=== PATIENT | male | born 1975 | race Caucasian/White ===

== ENCOUNTER → 2019-06-15 14:49 | Outpatient (CLI) | payer OTHER, SELFPAY ==
--- NOTE | 2019-06-15 14:53 | XR_ITS ---
PROCEDURE: XR DEXA AXIAL SKELETON CLINICAL HISTORY: HIGH RISK MEDICATION USE COMPARISON: No exams were available for comparison FINDINGS: L1-L4 density is 1.208 grams/centimeters sq with a T-score of -0.1. Left hip density is 0.944 grams/centimeters sq with T-score of -1.0. the Z-score of the L-spine is -0.7 and of the left femoral neck is -1.0 IMPRESSION: Moderately low bone density for age match controls with moderate fracture risk. Treatment advised. Suggest follow-up exam May 2021 Dictated by: Stevan Davalos MD 06/15/2019 15:22 Electronically signed by Stevan Davalos MD in [place] 06/15/2019 15:22
== END ==
PROVIDERS: PCP Family Medicine; Visit Provider Nurse Practitioner Family
DX: Z79.899 Other long term (current) drug therapy (principal); E70.0 Classical phenylketonuria
CPT/HCPCS: 77080

== ENCOUNTER → 2020-01-13 07:55 | Outpatient (CLI) | payer OTHER, SELFPAY ==
[2020-01-13 08:51] LABS: Basophils # 0.1 K/mm3 (0-0.2); Basophils % 1.3 % (0.1-2.0); Eosinophils # 0.5 K/mm3 (0.0-0.4); Eosinophils % 8.6 % (0.1-12.0); Hematocrit 44.9 % (42.0-52.0); Hemoglobin 15.8 g/dL (14.1-18.0); Lymphocytes # 1.5 K/mm3 (0.7-4.5); Mean Corpuscular HGB Conc 35.1 g/dL (31.8-35.4); Mean Corpuscular Hemoglobin 32.1 pg (27.0-31.2); Mean Corpuscular Volume 91.4 fl (80-94); Mean Platelet Volume 7.2 fl (7.4-10.4); Monocytes # 0.4 K/mm3 (0.1-1.0); Monocytes % 6.5 % (1.7-9.3); Neutrophils # 3.5 K/mm3 (1.8-7.8); Neutrophils % 58.7 % (37.0-80.0); Platelet Count 254 K/mm3 (142-424); Red Blood Count 4.91 M/mm3 (4.60-6.20); Red Cell Distribution Width 13.2 % (11.5-17.5)
[2020-01-13 11:20] LABS: Alanine Aminotransferase 36 U/L (12-78); Albumin Level 4.5 g/dl (3.5-5.0); Albumin/Globulin Ratio 1.7 (1.1-1.8); Alkaline Phosphatase 61 U/L (38-126); Anion Gap 9.3 mEq/L (5-15); Aspartate Amino Transferase 30 U/L (17-59); Bilirubin,Total 0.6 mg/dl (0.2-1.3); Blood Urea Nitrogen 11 mg/dl (9-20); Carbon Dioxide 29 mmol/L (22.0-30.0); Chloride 104 mmol/L (98-107); Chol/HDL Ratio 7.1 (1-3.5); Cholesterol 192 mg/dl (140-200); Estimated Glomerular Filt Rate 72 ml/min (>60); GFR (African American) 87 ML/MIN (>60); Globulin 2.6 g/dL (1.3-3.2); Glucose 96 mg/dl (74-100); HDL Cholesterol 27 mg/dl (40-60); Potassium 4.3 mmoL/L (3.5-5.1); Sodium 138 mmol/L (136-145); Total Protein,Serum 7.1 g/dl (6.3-8.2); Triglycerides 210 mg/dl (30-150); VLDL Cholesterol 42 mg/dL (0-40)
[2020-01-13 11:31] LABS: Direct LDL Cholesterol 150.38 mg/dL (100-129)
[2020-01-14 09:01] LABS: Folate 19.5 ng/mL (>3.0); Testosterone,Total 346 ng/dL (264-916); Vitamin B12 940 pg/mL (232-1245)
[2020-01-15 11:12] LABS: Vitamin D 25 Hydroxy 31.3 ng/mL (30.0-100.0)
== END ==
PROVIDERS: Visit Provider Family Medicine
DX: R53.83 Other fatigue (principal); R68.82 Decreased libido; E78.5 Hyperlipidemia, unspecified; I10 Essential (primary) hypertension
CPT/HCPCS: 36415; 80053; 80061; 82607; 82652; 82746; 84403; 85025

== ENCOUNTER → 2020-08-02 08:36 | Outpatient (CLI) | payer BC, SELFPAY ==
--- NOTE | 2020-08-02 08:40 | XR_ITS ---
PROCEDURE: XR DEXA AXIAL SKELETON CLINICAL HISTORY: local [employer] med use COMPARISON: No exams were available for comparison FINDINGS: The right hip BMD is 0.877 with a T-score of -0.4. The left hip BMD is 0.745 with a T-score of -1.4. The lumbar spine BMD is 1.042 with a T-score of -0.4. IMPRESSION: This patient is considered osteopenic according to the World Health Organization criteria. Bone density is between 10 and 25 percent below young normal. Fracture risk is moderate. Treatment is advised. Based on these results a follow-up exam is recommended in 2 year. Dictated by: Stevan Davalos MD 08/02/2020 10:42 Stevan Davalos MD in [place] 08/02/2020 10:42
== END ==
PROVIDERS: PCP Family Medicine; Visit Provider Nurse Practitioner Family
DX: Z79.899 Other long term (current) drug therapy (principal); M85.89 Other specified disorders of bone density and structure, multiple sites
CPT/HCPCS: 77080

== ENCOUNTER 2021-05-03 09:00 | Emergency (ER) | payer BC, SELFPAY ==
[2021-05-03 09:07] VITALS: BP 157/94; PULSE 74; RESP 14; TEMP 36.6; O2SAT 99; BMI 36.2
--- NOTE | 2021-05-03 09:47 | HMH.EDUTC ---
[facility] [place] Clinical Impression: Abscess of upper extremity Cellulitis Qualifiers: Site of cellulitis: extremity Site of cellulitis of extremity: upper extremity Laterality: right Qualified Code(s): L03.113 - Cellulitis of right upper limb Disposition: Home, Self-Care Condition on Discharge: Good Instructions: Cellulitis Additional Instructions: Keep the affected area clean and dry. Follow up with your regular doctor. Take the antibiotics as directed and apply the topical antibiotics as directed. Apply warm wet compresses to the affected area three or four times per day. GO TO THE ER FOR ANY WORSENING SYMPTOMS Watch yourself for worsening symptoms, such as fever, chills, area of redness getting larger, etc. Follow up [place] for any issues. Prescriptions: Sulfamethoxazole/Trimethoprim [Bactrim DS tablet] 1 each PO BID 10 Days #20 tab Transmission Status: Received by [facility] Mupirocin [Bactroban 2% Ointment 22gm tube] 1 applicatio TP TID 7 Days #1 gm Transmission Status: Received by [facility] cephALEXin [cephALEXin 500mg capsule] 500 mg PO Q6H 10 Days #40 cap Transmission Status: Received by [facility] Referrals: Lucas Rogers MD [Primary Care Provider] - Time of Disposition: 10:10 Medical Decision Making - Medical Records Medical records reviewed: No: I reviewed the patient's medical records. - Niko Inquiry Pt receiving controlled substance: No Vital Signs: 05/03/21 09:07 05/03/21 10:27 Temperature 98 F 98 F Temperature Source Oral Pulse Rate 74 Pulse Rate [Left] 74 Respiratory Rate 14 18 Blood Pressure 157/94 H Blood Pressure [Right Arm] 157/94 H Blood Pressure Mean [Right Arm] 115 02 Sat by Pulse Oximetry 99 Orders (Tests/Meds): ED MEDICATIONS Discontinued Medications Generic Name Dose Route Start Last Admin Trade Name Freq PRN Reason Stop Dose Admin Ceftriaxone Sodium 1 gm 05/03/21 09:48 05/03/21 09:58 Ceftriaxone 1gm Vial IM 05/03/21 09:49 1 gm ONCE ONE Administration Lidocaine HCl 0 ml 05/03/21 09:48 05/03/21 09:58 Lidocaine 1% 5ml Pf Vial IM 05/03/21 09:49 2.5 ml ONCE ONE Administration ORDERS Category Date Time Status Wound Culture and Gram Stain Stat Micro 05/03/21 09:50 Results [facility] [place] - General Stated complaint: infected spot on rt shoulder Time Seen by Provider: 05/03/21 09:15 Mode of Arrival: Ambulatory Source of Information: Patient Limitations: No Limitations Description of Symptoms (Recalled from Triage Doc. by RN): pt has a possible bug bite on his R shoulder. the area has developed a red softball size [place] around it that then radiates down to his axilla. the area is red, warm and slightly swollen. HEENT Symptoms (Recalled from RN notes): No Resp Symptoms (Recalled from RN notes): No Skin Symptoms (Recalled from RN notes): Yes (red rash on R shoulder) MS Symptoms (Recalled from RN notes): No Functional Status (Recalled from RN notes): na - History of Present Illness Provider Complaint: HE states that for the past 3 days he has had a worsening red area on his right shoulder. He thinks the he was bitten by a bug, then it has got infected. He denies any fever or chills. - Related Data Home Medications Medication Instructions Recorded Confirmed losartan 100 mg tablet 100 mg PO #30 tab 12/09/18 Previous Rx's Medication Instructions Recorded Mupirocin [Bactroban 2% Ointment 1 applicatio TP TID 7 Days #1 gm 05/03/21 22gm tube] Sulfamethoxazole/Trimethoprim 1 each PO BID 10 Days #20 tab 05/03/21 [Bactrim DS tablet] cephALEXin [cephALEXin 500mg 500 mg PO Q6H 10 Days #40 cap 05/03/21 capsule] Allergies Allergy/AdvReac Type Severity Reaction Status Date / Time No Known Drug Allergies Allergy Unknown Verified 12/09/18 16:33 [NO KNOWN DRUG ALLERGIES] - Worker's Comp Is this a Worker's Comp case?: No [facility] History - Hepa
[2021-05-03 10:27] VITALS: BP 157/94; PULSE 74; RESP 18; TEMP 36.6
== END 2021-05-03 10:28 | disposition home or self-care (01) ==
PROVIDERS: Emergency Provider Nurse Practitioner Family; PCP Family Medicine
DX: L03.113 Cellulitis of right upper limb (principal); I10 Essential (primary) hypertension; Z79.899 Other long term (current) drug therapy
CPT/HCPCS: 87070; 87186; 87205; 96372; 99202; G0463

== ENCOUNTER → 2021-08-18 09:33 | Outpatient (CLI) | payer BC, SELFPAY ==
[2021-08-18 10:16] LABS: Basophils # 0.1 K/mm3 (0-0.2); Basophils % 1.9 % (0.1-2.0); Eosinophils # 0.3 K/mm3 (0.0-0.4); Eosinophils % 5.1 % (0.1-12.0); Hematocrit 47.9 % (42.0-52.0); Hemoglobin 16.3 g/dL (14.1-18.0); Lymphocytes # 1.3 K/mm3 (0.7-4.5); Lymphocytes % 21.5 % (10-50); Mean Corpuscular Hemoglobin 31.3 pg (27.0-31.2); Mean Corpuscular Volume 91.9 fl (80-94); Mean Platelet Volume 7.7 fl (7.4-10.4); Monocytes # 0.4 K/mm3 (0.1-1.0); Monocytes % 5.9 % (1.7-9.3); Neutrophils % 65.6 % (37.0-80.0); Platelet Count 293 K/mm3 (142-424); Red Blood Count 5.21 M/mm3 (4.60-6.20); Red Cell Distribution Width 12.8 % (11.5-17.5); White Blood Count 6.1 K/mm3 (4.8-10.8)
[2021-08-18 10:44] LABS: Cholesterol 224 mg/dl (140-200); HDL Cholesterol 28 mg/dl (40-60); Triglycerides 206 mg/dl (30-150); VLDL Cholesterol 41 mg/dL (0-40)
[2021-08-18 10:45] LABS: Alanine Aminotransferase 52 U/L (12-78); Albumin Level 4.3 g/dl (3.5-5.0); Albumin/Globulin Ratio 1.7 (1.1-1.8); Alkaline Phosphatase 61 U/L (38-126); Anion Gap 11.9 mEq/L (5-15); Aspartate Amino Transferase 36 U/L (17-59); Bilirubin,Total 0.6 mg/dl (0.2-1.3); Blood Urea Nitrogen 8 mg/dl (9-20); Calcium 9.9 mg/dl (8.4-10.2); Carbon Dioxide 27 mmol/L (22.0-30.0); Chloride 103 mmol/L (98-107); Estimated Glomerular Filt Rate 80 ml/min (>60); GFR (African American) 97 ML/MIN (>60); Globulin 2.6 g/dL (1.3-3.2); Glucose 148 mg/dl (74-100); Potassium 3.9 mmoL/L (3.5-5.1); Sodium 138 mmol/L (136-145); Total Protein,Serum 6.9 g/dl (6.3-8.2)
[2021-08-18 10:55] LABS: Direct LDL Cholesterol 160.36 mg/dL (100-129)
[2021-08-18 11:08] LABS: 25-OH Vitamin D, Total 46.9 ng/mL (30-100)
[2021-08-18 11:41] LABS: Vitamin B12 846 pg/mL (239-931)
[2021-08-19 10:25] LABS: Prealbumin 26 mg/dL (12-34)
== END ==
PROVIDERS: Family Medicine; Visit Provider Nurse Practitioner Family
DX: E70.1 Other hyperphenylalaninemias (principal); I10 Essential (primary) hypertension; E66.9 Obesity, unspecified; G47.33 Obstructive sleep apnea (adult) (pediatric); Z68.35 Body mass index [BMI] 35.0-35.9, adult
CPT/HCPCS: 36415; 80053; 80061; 82306; 82607; 84134; 85025

== ENCOUNTER → 2021-09-29 11:44 | Outpatient (CLI) | payer BC, SELFPAY | PROVIDERS: PCP Family Medicine; Visit Provider Nurse Practitioner Family | DX: E70.1 Other hyperphenylalaninemias (principal) | CPT/HCPCS: 36415 ==

== ENCOUNTER → 2021-11-15 09:13 | Outpatient (CLI) | payer BC, SELFPAY | PROVIDERS: Visit Provider Nurse Practitioner Family | DX: E70.1 Other hyperphenylalaninemias (principal) | CPT/HCPCS: 36415 ==

== ENCOUNTER → 2021-11-29 09:41 | Outpatient (CLI) | payer BC, SELFPAY ==
[2021-11-29 10:31] LABS: Alanine Aminotransferase 38 U/L (12-78); Albumin/Globulin Ratio 1.8 (1.1-1.8); Alkaline Phosphatase 51 U/L (38-126); Aspartate Amino Transferase 30 U/L (17-59); Bilirubin,Total 0.7 mg/dl (0.2-1.3); Blood Urea Nitrogen 12 mg/dl (9-20); Carbon Dioxide 27 mmol/L (22.0-30.0); Chloride 106 mmol/L (98-107); Chol/HDL Ratio 6.7 (1-3.5); Cholesterol 155 mg/dl (140-200); Estimated Glomerular Filt Rate 80 ml/min (>60); GFR (African American) 97 ML/MIN (>60); Globulin 2.2 g/dL (1.3-3.2); Glucose 161 mg/dl (74-100); HDL Cholesterol 23 mg/dl (40-60); Sodium 140 mmol/L (136-145); Total Protein,Serum 6.2 g/dl (6.3-8.2); Triglycerides 151 mg/dl (30-150); VLDL Cholesterol 30 mg/dL (0-40)
[2021-11-29 10:42] LABS: Direct LDL Cholesterol 101.04 mg/dL (100-129)
== END ==
PROVIDERS: PCP Family Medicine; Visit Provider Nurse Practitioner Family
DX: I10 Essential (primary) hypertension (principal); E78.5 Hyperlipidemia, unspecified
CPT/HCPCS: 36415; 80053; 80061

== ENCOUNTER → 2022-03-09 11:19 | Outpatient (CLI) | payer BC, SELFPAY | PROVIDERS: Visit Provider Nurse Practitioner Family | DX: E70.1 Other hyperphenylalaninemias (principal) | CPT/HCPCS: 36415 ==

== ENCOUNTER → 2022-06-27 09:01 | Outpatient (CLI) | payer BC, SELFPAY ==
[2022-06-27 09:32] LABS: Basophils # 0.1 K/mm3 (0-0.2); Basophils % 1.8 % (0.1-2.0); Eosinophils # 0.2 K/mm3 (0.0-0.4); Eosinophils % 4.2 % (0.1-12.0); Hematocrit 46.9 % (42.0-52.0); Hemoglobin 15.5 g/dL (14.1-18.0); Lymphocytes # 1.3 K/mm3 (0.7-4.5); Lymphocytes % 23.9 % (10-50); Mean Corpuscular HGB Conc 33.1 g/dL (31.8-35.4); Mean Corpuscular Hemoglobin 31.2 pg (27.0-31.2); Mean Corpuscular Volume 94.3 fl (80-94); Mean Platelet Volume 7.2 fl (7.4-10.4); Monocytes # 0.3 K/mm3 (0.1-1.0); Monocytes % 5.9 % (1.7-9.3); Neutrophils # 3.4 K/mm3 (1.8-7.8); Neutrophils % 64.2 % (37.0-80.0); Platelet Count 273 K/mm3 (142-424); Red Blood Count 4.97 M/mm3 (4.60-6.20); Red Cell Distribution Width 12.9 % (11.5-17.5); White Blood Count 5.3 K/mm3 (4.8-10.8)
[2022-06-27 11:04] LABS: Alanine Aminotransferase 46 U/L (12-78); Albumin Level 4.4 g/dl (3.5-5.0); Albumin/Globulin Ratio 1.9 (1.1-1.8); Alkaline Phosphatase 87 U/L (38-126); Anion Gap 14.1 mEq/L (5-15); Aspartate Amino Transferase 36 U/L (17-59); Bilirubin,Total 0.5 mg/dl (0.2-1.3); Blood Urea Nitrogen 10 mg/dl (9-20); Calcium 9.9 mg/dl (8.4-10.2); Carbon Dioxide 29 mmol/L (22.0-30.0); Chloride 103 mmol/L (98-107); Estimated Glomerular Filt Rate 71 ml/min (>60); GFR (African American) 86 ML/MIN (>60); Globulin 2.3 g/dL (1.3-3.2); Glucose 104 mg/dl (74-100); Potassium 4.1 mmoL/L (3.5-5.1); Sodium 142 mmol/L (136-145); Total Protein,Serum 6.7 g/dl (6.3-8.2)
[2022-06-27 11:54] LABS: Vitamin B12 805 pg/mL (239-931)
[2022-06-28 07:09] LABS: Prealbumin 24 mg/dL (12-34)
== END ==
PROVIDERS: PCP Family Medicine; Visit Provider Nurse Practitioner Family
DX: E70.1 Other hyperphenylalaninemias (principal)
CPT/HCPCS: 36415; 80053; 82607; 82776; 84134; 85025

== ENCOUNTER → 2022-07-06 08:50 | Outpatient (CLI) | payer BC, SELFPAY ==
--- NOTE | 2022-07-06 08:56 | XR_ITS ---
FINAL REPORT TECHNIQUE: Bone densitometry calculations of the lumbar spine and hip were obtained. CLINICAL HISTORY: OID/phenylketonuria COMPARISON: 08/02/2020 FINDINGS: DEXA BONE DENSITY AXIAL SKELETON Using L1-4, the bone mineral density of the spine is 1.053 g/cm2, corresponding to T-score of -0.3. Previously measured 1.042 g/cm2, corresponding to T-score of -0.4. Using the left hip, the bone mineral density of the femoral neck is 0.741 g/cm2, corresponding to a T-score of -1.4. Previously measured 0.745 g/cm2, corresponding to T-score of -1.4. Using the right hip, the bone mineral density of the femoral neck is 0.878 g/cm2, corresponding to a T-score of -0.4. Previously measured 0.877 g/cm2, corresponding to T-score of -0.4. NOTE: T-score: Standard deviation compared with peak bone mass of young adult mean. *Following the recommendations of the International Society of Bone densitometry, classification of hip BMD is based on the lower of two T-scores; total hip or femoral neck. IMPRESSION: Normal bone mineral density of the lumbar spine and right hip. Diminished bone mineral density of the left hip consistent with osteopenia. Reviewed, Interpreted and Dictated by Rodney Pacheco MD Transcribed by Alanna Chan Authenticated and [facility]
== END ==
PROVIDERS: PCP Family Medicine; Visit Provider Nurse Practitioner Family
DX: E70.1 Other hyperphenylalaninemias (principal)
CPT/HCPCS: 77080

== ENCOUNTER → 2022-08-08 08:25 | Outpatient (CLI) | payer BC, SELFPAY | PROVIDERS: PCP Family Medicine; Visit Provider Nurse Practitioner Family | DX: E70.1 Other hyperphenylalaninemias (principal) | CPT/HCPCS: 36415 ==

== ENCOUNTER → 2022-10-03 08:12 | Outpatient (CLI) | payer BC, SELFPAY ==
[2022-10-03 15:19] LABS: 25-OH Vitamin D, Total 53.9 ng/mL (30-100)
== END ==
PROVIDERS: PCP Internal Medicine Cardiovascular Disease; Visit Provider Nurse Practitioner Family
DX: E70.1 Other hyperphenylalaninemias (principal)
CPT/HCPCS: 36415; 82306; 82776

== ENCOUNTER → 2023-02-10 13:27 | Outpatient (CLI) | payer OTHER, SELFPAY ==
[2023-02-10 15:21] LABS: Hemoglobin A1C 5.3 % (4.0-6.0)
[2023-02-10 15:36] LABS: Alanine Aminotransferase 52 U/L (12-78); Albumin Level 4.5 g/dl (3.5-5.0); Albumin/Globulin Ratio 1.9 (1.1-1.8); Alkaline Phosphatase 72 U/L (38-126); Anion Gap 15.6 mEq/L (5-15); Aspartate Amino Transferase 41 U/L (17-59); Bilirubin,Total 0.4 mg/dl (0.2-1.3); Blood Urea Nitrogen 9 mg/dl (9-20); Calcium 9.3 mg/dl (8.4-10.2); Carbon Dioxide 31 mmol/L (22.0-30.0); Chloride 97 mmol/L (98-107); Chol/HDL Ratio 6.6 (1-3.5); Cholesterol 185 mg/dl (140-200); Estimated Glomerular Filt Rate 71 ml/min (>60); GFR (African American) 86 ML/MIN (>60); Globulin 2.4 g/dL (1.3-3.2); Glucose 104 mg/dl (74-100); HDL Cholesterol 28 mg/dl (40-60); Potassium 3.6 mmoL/L (3.5-5.1); Sodium 140 mmol/L (136-145); Total Protein,Serum 6.9 g/dl (6.3-8.2); Triglycerides 267 mg/dl (30-150); VLDL Cholesterol 53 mg/dL (0-40)
[2023-02-10 15:47] LABS: Direct LDL Cholesterol 117.18 mg/dL (100-129)
== END ==
PROVIDERS: PCP Family Medicine; Visit Provider Family Medicine
DX: I10 Essential (primary) hypertension (principal); E78.5 Hyperlipidemia, unspecified; Z13.1 Encounter for screening for diabetes mellitus; Z79.899 Other long term (current) drug therapy
CPT/HCPCS: 36415; 80053; 80061; 83036

== ENCOUNTER 2024-01-03 15:28 | Outpatient (CLI) | payer BC, SELFPAY ==
[2024-01-03 16:56] LABS: Alanine Aminotransferase 57 U/L (12-78); Albumin Level 4.2 g/dl (3.5-5.0); Albumin/Globulin Ratio 1.6 (1.1-1.8); Alkaline Phosphatase 66 U/L (38-126); Anion Gap 12.7 mEq/L (5-15); Aspartate Amino Transferase 45 U/L (17-59); Bilirubin,Total 0.9 mg/dl (0.2-1.3); Blood Urea Nitrogen 8 mg/dl (9-20); Calcium 9.6 mg/dl (8.4-10.2); Carbon Dioxide 30 mmol/L (22.0-30.0); Chloride 100 mmol/L (98-107); Estimated Glomerular Filt Rate 71 ml/min (>60); GFR (African American) 86 ML/MIN (>60); Globulin 2.7 g/dL (1.3-3.2); Glucose 143 mg/dl (74-100); Potassium 3.7 mmoL/L (3.5-5.1); Sodium 139 mmol/L (136-145); Total Protein,Serum 6.9 g/dl (6.3-8.2)
[2024-01-03 17:43] LABS: Vitamin B12 780 pg/mL (239-931)
[2024-01-03 19:16] LABS: Hematocrit 43.4 % (42.0-52.0); Hemoglobin 15.1 g/dL (14.1-18.0); Mean Corpuscular HGB Conc 34.7 g/dL (31.8-35.4); Mean Corpuscular Hemoglobin 31.9 pg (27.0-31.2); Mean Corpuscular Volume 92.2 fl (80-94); Platelet Count 294 K/mm3 (142-424); Red Blood Count 4.71 M/mm3 (4.60-6.20); Red Cell Distribution Width 13.5 % (11.5-17.5); White Blood Count 5.7 K/mm3 (4.8-10.8)
[2024-01-05 13:14] LABS: Prealbumin 27 mg/dL (12-34)
== END 2024-01-03 23:59 | disposition home or self-care (01) ==
LOC: LAB 15:30
PROVIDERS: PCP Family Medicine; Visit Provider Nurse Practitioner Family
DX: E70.1 Other hyperphenylalaninemias (principal); R73.09 Other abnormal glucose; E66.9 Obesity, unspecified; Z68.35 Body mass index [BMI] 35.0-35.9, adult
CPT/HCPCS: 36415; 80053; 82131; 82306; 82607; 82776; 84134; 85014; 85018; 85048; 85049